=== PATIENT | female | born 1945 | race African-American/Black ===

== ENCOUNTER 2016-11-20 09:41 | Emergency (ER) | payer MEDICARE ==
[~2016-11-20] VITALS: Ht 170.2 cm; Wt 68.0 kg
[2016-11-20 09:45] VITALS: BP 170/90
[2016-11-20] MEDS ORDERED: ATORVASTATIN CA40 MG ORAL (09:51)
[2016-11-20] MEDS ORDERED: COSOPT PF EYE1 EAC1 OP (09:51)
[2016-11-20] MEDS ORDERED: Cefepime HCl 2 GM in NS 110 ML IV SCH (10:00)
[2016-11-20] MEDS ORDERED: Cefepime 2gm ONE (10:13)
[2016-11-20] MEDS ORDERED: OMEPRAZOLE20 M2 ORAL (10:13)
[2016-11-20] MEDS ORDERED: METOPROLOL TART25 MG ORAL (10:13)
[2016-11-20] MEDS ORDERED: LATANOPROST2.5 ML BOTH EYES (10:13)
[2016-11-20] MEDS ORDERED: DOCUSATE SODIU100 MG ORAL (10:13)
[2016-11-20] MEDS ORDERED: ZITHROMAX250 MG ORAL (10:16)
[2016-11-20] MEDS ORDERED: DIABETIC TUSSI118 ML PO (10:16)
[2016-11-20] MEDS ORDERED: ACETAMINOPHEN325 M1 ORAL (10:17)
[2016-11-20 10:49] LABS: MEAN CORPUSCULAR HEMOGLOBIN 30.5 PG (27.0-31.0); MEAN CORPUSCULAR HGB CONC 33.9 G/DL (32.0-36.0); MEAN CORPUSCULAR VOLUME 90 FL (80-99); MEAN PLATELET VOLUME 8.6 FL (6.5-10.1); PLATELET COUNT 218 K/UL (150-450); RED BLOOD COUNT 4.05 M/UL (4.20-5.40); WHITE BLOOD COUNT 10.6 K/UL (4.8-10.8)
[2016-11-20 10:54] LABS: PROTHROMBIN TIME 10.5 SEC (9.30-11.50)
--- NOTE | 2016-11-20 10:54 | Diagnostic Imaging Report ---
Indication: Shortness of breath Technique: XRAY CHEST 1 V Comparison: None Findings: The cardiomediastinal silhouette is within normal limits. There is no focal consolidation, pneumothorax or pleural effusion. Degenerative changes of the spine are seen. Impression: No acute cardiopulmonary disease.
[2016-11-20 10:57] LABS: TROPONIN I < 0.30 ng/mL (<=0.30)
[2016-11-20 11:00] LABS: ALANINE AMINOTRANSFERASE 24 U/L (3-33); ALBUMIN/GLOBULIN RATIO 0.9 (1.0-2.7); ANION GAP 13 (5-15); ASPARTATE AMINO TRANSFERASE 47 U/L (5-40); CALCIUM 10.2 mg/dL (8.6-10.2); CARBON DIOXIDE 26 mEQ/L (20-30); CHLORIDE 103 mEQ/L (98-107); CREATININE 0.9 mg/dL (0.5-0.9); HEMOLYSIS 1; POTASSIUM 3.9 mEQ/L (3.4-4.9); SODIUM 142 mEQ/L (135-145); TOTAL PROTEIN 7.9 g/dL (6.6-8.7)
[2016-11-20 11:04] LABS: APPEARANCE,URINE CLEAR; KETONES,URINE NEGATIVE (NEGATIVE); LEUKOCYTE ESTERASE ,URINE 1+ (NEGATIVE); NITRITE,URINE NEGATIVE (NEGATIVE); PH,URINE 8 (4.5-8.0); PROTEIN,URINE 1+ (NEGATIVE); UROBILINOGEN,URINE 1 MG/DL (0.0-1.0)
[2016-11-20 11:05] LABS: RBC,URINE 0 /HPF (0 - 2)
[2016-11-20 11:06] LABS: SQUAMOUS EPITHELIAL CELL,UR FEW /LPF (NONE/OCC)
[2016-11-20 11:26] LABS: BAND NEUTROPHILS % (MANUAL) 0 % (0-8); BASOPHILS % (MANUAL) 0 % (0-2); EOSINOPHILS % (MANUAL) 1 % (0-3); LYMPHOCYTES % (MANUAL) 10 % (20-45); NEUTROPHILS % (MANUAL) 86 % (45-75); PLATELET ESTIMATE ADEQUATE; PLATELET MORPHOLOGY NORMAL; TOTAL CELLS COUNTED 100
[2016-11-20 11:28] LABS: LIPASE 7293 U/L (< 60)
[2016-11-20] MEDS ORDERED: Morphine Sulfate 2mg/ml Inj IVP ONE (11:45)
[2016-11-20 12:00] VITALS: BP 175/85
--- NOTE | 2016-11-20 12:03 | Diagnostic Imaging Report ---
Indication: Abdominal pain Technique: CT of the abdomen and pelvis utilizing automated exposure control with intravenous contrast. Venous scanning performed. CT dose: Total DLP 838 mGycm; CTDI vol 16.6 mGy Comparison: None Findings: There is mild atelectasis in the lung bases. There is limited evaluation of bowel without oral contrast. The heart is enlarged. There is a tiny hiatal hernia. Liver is unremarkable. The gallbladder is distended. Tiny gallstones are suspected. The adrenal glands and spleen are unremarkable. A 1.9 cm hypodense lesion is seen of the pancreatic body. There is a 7 mm cyst in the upper pole of the left kidney. No hydronephrosis is identified. Atherosclerotic changes are seen. The abdominal aorta is normal in caliber. There is a paraumbilical hernia containing bowel but no obstruction. There is colonic diverticulosis without diverticulitis. The appendix is normal. Multiple calcified masses are seen of the uterus measuring up to 5.1 cm. There is no free intraperitoneal fluid or air. Small fat-containing bilaterally more hernias are seen. Bladder is grossly unremarkable. Degenerative changes of the spine are present. Impression: Mild mesenteric fluid in the upper abdomen adjacent to the pancreatic body and pancreatitis may be considered. Correlation with pancreatic enzymes recommended. Colonic diverticulosis without diverticulitis. Gallbladder distention. Suspect tiny gallstones series 3 image 44. Clinical correlation recommended. Small left renal cyst. 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 Further evaluation/followup recommended as indicated. Multiple calcified uterine masses suggestive of fibroids. Paraumbilical hernia containing a focal loop of small bowel without obstruction. Atherosclerotic changes. Other findings described above. The CT scanner at [facility] is accredited by the [employer] and the scans are performed using protocols designed to limit radiation exposure to as low as reasonably achievable to attain images of sufficient resolution adequate for diagnostic evaluation.
--- NOTE | 2016-11-20 12:09 | Emergency Room Report ---
History of Present Illness General Chief Complaint: Lower Back Pain or Injury Source: Patient Present Illness HPI The patient is a 71-year-old female who presented after increased epigastric pain. Patient stated that she had epigastric pain as well as low back pain. Patient cannot recall the how pain began. She states that she had recently been seen at [place]. Patient had prior history of dementia. She is not knowledgeable bladder medical condition. The patient denied vomiting however she was noted to be vomiting by EMS. History is limited by poor historian Allergies: Coded Allergies: No Known Allergies (Unverified , 11/20/16) Patient History Past Medical History: see triage record Reviewed Nursing Documentation: PMH: Agreed, PSxH: Agreed Nursing Documentation-PMH Hx Hypertension: Yes Review of Systems All Other Systems: limited - by poor historian Physical Exam Vital Signs Date Time Temp Pulse Resp B/P Pulse Ox O2 Delivery O2 Flow Rate FiO2 11/20/16 09:34 97.5 60 16 146/87 99 Room Air Sp02 EP Interpretation: reviewed, normal General Appearance: normal inspection, well appearing, no apparent distress, alert Head: atraumatic ENT: normal ENT inspection, hearing grossly normal, normal voice Neck: normal inspection, full range of motion, supple, no bony tend Respiratory: normal inspection, lungs clear, normal breath sounds, no respiratory distress, no retraction, no wheezing Cardiovascular #1: regular rate, rhythm, no edema Gastrointestinal: normal bowel sounds, non tender, soft, no guarding, no hernia , tenderness Genitourinary: no CVA tenderness Musculoskeletal: normal inspection, back normal, normal range of motion Neurologic: normal inspection, alert, oriented x3, responsive, drivers' cash clerk III-XII nml as tested, speech normal, other - decreased memory Psychiatric: normal inspection, judgement/insight normal, mood/affect normal Skin: normal inspection, normal color, no rash Medical Decision Making Diagnostic Impression: Primary Impression: Pancreatitis Additional Impression: Gallstone pancreatitis ER Course Patient presented for abdominal pain. Differential diagnoses included ischemic bowel, appendicitis, perforated viscus, abdominal aortic aneurysm, inferior myocardial infarction, viral gastroenteritis Because of complexity of patient's case laboratory testing and imaging studies were ordered. A chest x-ray one view to remain showed is normal cardiac size without evident infiltrate. A CT of abdomen and pelvis read by radiologist showed distended gallbladder with apparent pancreatic inflammation. The patient was discussed with [facility] doctor Ramírez [phone] The patient given IV antibiotics as well as IV pain medications. A urinalysis showed evidence of slight infection. White blood count was normal with a left shift.The patient will be transferred to [place] for continuity of care.The patient's pancreatitis. To be gallstone related. Patient will likely need further imaging and possible ERCP Labs Test 11/20/16 10:00 11/20/16 10:10 White Blood Count 10.6 K/UL (4.8-10.8) Red Blood Count 4.05 M/UL (4.20-5.40) Hemoglobin 12.4 G/DL (12.0-16.0) Hematocrit 36.5 % (37.0-47.0) Mean Corpuscular Volume 90 FL (80-99) Mean Corpuscular Hemoglobin 30.5 PG (27.0-31.0) Mean Corpuscular Hemoglobin Concent 33.9 G/DL (32.0-36.0) Red Cell Distribution Width 13.0 % (11.6-14.8) Platelet Count 218 K/UL (150-450) Mean Platelet Volume 8.6 FL (6.5-10.1) Neutrophils (%) (Auto) % (45.0-75.0) Lymphocytes (%) (Auto) % (20.0-45.0) Monocytes (%) (Auto) % (1.0-10.0) Eosinophils (%) (Auto) % (0.0-3.0) Basophils (%) (Auto) % (0.0-2.0) Differential Total Cells Counted 100 Neutrophils % (Manual) 86 % (45-75) Lymphocytes % (Manual) 10 % (20-45) Monocytes % (Manual) 3 % (1-10) Eosinophils % (Manual) 1 % (0-3) Basophils % (Manual) 0 % (0-2) Band Neutrophils 0 % (0-8) Platelet Estimate Adequate Platelet Morphology Normal Red Blood Cell Morphology Normal Prothrombin Time 10.5 SEC (9.30-11.50) Prothromb Time International Ratio 1.0 (0.9-1.1) Activated Partial Thromboplast Time 26 SEC (23-33) Sodium Level 142 mEQ/L (135-145) Potassium Level 3.9 mEQ/L (3.4-4.9) Chloride Level 103 mEQ/L (98-107) Carbon Dioxide Level 26 mEQ/L (20-30) Anion Gap 13 (5-15) Blood Urea Nitrogen 19 mg/dL (7-23) Creatinine 0.9 mg/dL (0.5-0.9) Estimat Glomerular Filtration Rate mL/min (>60) Glucose Level 157 mg/dL (74-106) Calcium Level 10.2 mg/dL (8.6-10.2) Total Bilirubin 0.7 mg/dL (0.0-1.2) Aspartate Amino Transf (AST/SGOT) 47 U/L (5-40) Alanine Aminotransferase (ALT/SGPT) 24 U/L (3-33) Alkaline Phosphatase 140 U/L (35-104) Troponin I < 0.30 ng/mL (<=0.30) Total Protein 7.9 g/dL (6.6-8.7) Albumin 3.9 g/dL (3.5-5.2) Globulin 4.0 g/dL Albumin/Globulin Ratio 0.9 (1.0-2.7) Lipase 7293 U/L (< 60) Urine Color Yellow Urine Appearance Clear Urine pH 8 (4.5-8.0) Urine Specific [place] 1.010 (1.005-1.035) Urine Protein 1+ (NEGATIVE) Urine Glucose (UA) Negative (NEGATIVE) Urine Ketones Negative (NEGATIVE) Urine Occult Blood Negative (NEGATIVE) Urine Nitrite Negative (NEGATIVE) Urine Bilirubin Negative (NEGATIVE) Urine Urobilinogen 1 MG/DL (0.0-1.0) Urine Leukocyte Esterase 1+ (NEGATIVE) Urine RBC 0 /HPF (0 - 2) Urine WBC 2-4 /HPF (0 - 2) Urine Squamous Epithelial Cells Few /LPF (NONE/OCC) Urine Bacteria None /HPF (NONE) Rhythm Strip Diag. Results EP Interpretation: yes Rhythm: NSR, no PVC's, no ectopy Last Vital Signs Date Time Temp Pulse Resp B/P Pulse Ox O2 Delivery O2 Flow Rate FiO2 11/20/16 12:00 98.3 62 24 175/85 97 Room Air Status: unchanged Disposition: XFER SHT-TRM HOSP Condition: Serious Referrals: [facility] (PCP) Campbell Bertrand Nov 20, 2016 12:09
[2016-11-20 13:59] VITALS: BP 183/75
[2016-11-20 14:13] VITALS: BP 174/72
== END 2016-11-20 14:19 | disposition short-term general hospital (02) ==
LOC: EDBD 09:41 → EMR 10:00
DX: K85.90 Acute pancreatitis without necrosis or infection, unspecified (principal); K80.80 Other cholelithiasis without obstruction; I10 Essential (primary) hypertension
CPT/HCPCS: 36415; 71010; 74177; 80053; 81003; 83690; 84484; 85007; 85025; 85610; 85730; 86850; 86900; 86901; 87040; 96361; 96374; 96375; 99285; J2270; J2405; Q9967